=== PATIENT | male | born 1960 | race African-American/Black ===

== ENCOUNTER 2020-05-11 16:05 | Inpatient (IN) | payer OTHER ==
--- NOTE | 2020-05-11 20:18 | HP ---
CIWA Score - Admission Criteria [facility] Guidelines: Admission for Medically Managed Detox: Requires at least one of the followin. CIWA greater than 12 2. Seizures within the past 24 hours 3. Delirium tremens within the past 24 hours 4. Hallucinations within the past 24 hours 5. Acute intervention needed for co occurring medical disorder 6. Acute intervention needed for co occurring psychiatric disorder 7. Severe withdrawal that cannot be handled at a lower level of care (continued vomiting, continued diarrhea, abnormal vital signs) requiring intravenous medication and/or fluids 8. Admission ROS [facility] Chief Complaint: Seeking admission to Rehab. Allergies/Adverse Reactions: Allergies Allergy/AdvReac Type Severity Reaction Status Date / Time No Known Allergies Allergy Verified 05/11/20 20:29 History of Present Illness: Patient is seeking admission to Rehab. He reports that he drinks 1 pint Vodka occasionally but often once a week and his last drink was yesterday morning. He has medical history of asthma, seizures (last seizure was on 05/03/2020), hypertension, CVA ( thrice in 2013, 2016 and 2018) and psych. history of depression. He denies suicidal ideation at this time. He is unemployed, lives in a retirement and denies any legal issues. 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 Patient is a poor historian. Exam Limitations: No Limitations - Ebola screening Have you traveled outside of the country in the last 21 days: No Have you had contact with anyone from an Ebola affected area: No Have you been sick,other than usual withdrawal symptoms: No Do you have a fever: No - Review of Systems Constitutional: No Symptoms Reported EENT: reports: No Symptoms Reported Respiratory: reports: No Symptoms reported Cardiac: reports: No Symptoms Reported GI: reports: No Symptoms Reported : reports: No Symptoms Reported Musculoskeletal: reports: No Symptoms Reported Integumentary: reports: No Symptoms Reported Neuro: reports: No Symptoms reported Endocrine: reports: No Symptoms Reported Hematology: reports: No Symptoms Reported Psychiatric: reports: Mood/Affect Appropiate, Orientated x3 Other Systems: Reviewed and Negative Patient History - Patient Medical History Hx Anemia: No Hx Asthma: Yes Hx Chronic Obstructive Pulmonary Disease (COPD): No Hx Cancer: No Hx Cardiac Disorders: No Hx Congestive Heart Failure: No Hx Hypertension: Yes Hx Hypercholesterolemia: No Hx Pacemaker: No HX Cerebrovascular Accident: Yes (2015, 2016, 2018, ) Hx Seizures: Yes Hx Diabetes: No Hx Gastrointestinal Disorders: No Hx Liver Disease: No Hx Genitourinary Disorders: No Hx Sexually Transmitted Disorders: No Hx Renal Disease (ESRD): No Hx Thyroid Disease: No Hx Human Immunodeficiency Virus (HIV): No (Negative 2019) Hx Hepatitis C: No Hx Depression: Yes (+ Anxiety) Hx Suicide Attempt: No (Denies suicidal ideation at this time) Hx Bipolar Disorder: No Hx Schizophrenia: No - Patient Surgical History Past Surgical History: Yes Hx Neurologic Surgery: No Hx Cataract Extraction: No Hx Cardiac Surgery: No Hx Lung Surgery: No Hx Abdominal Surgery: No Hx Appendectomy: No Hx Cholecystectomy: No Hx Genitourinary Surgery: No Hx Orthopedic Surgery: No Other Surgical History: Arm surgery 1975 - PPD History Previous Implant?: Yes Documented Results: Negative w/o proof Implanted On Prior [facility] Admission?: No PPD to be Administered?: Yes - Reproductive History Patient is a Female of Child Bearing Age (11 -55 yrs old): No (Male) - Smoking Cessation Smoking history: Current some day smoker Have you smoked in the past 12 months: Yes Aproximately how many cigarettes per day: 1 Hx Chewing Tobacco Use: No Initiated information on smoking cessation: Yes 'Breaking Loose' booklet given: 05/11/20 - Substance & Tx. History Hx Alcohol Use: Yes Hx Substance Use: No Substance Use Type: Alcohol Hx Substance Use [place]: [place] - Substances abused Alcohol Substance route: Oral Frequency: 1-2 times per week Amount used: 1 pint Age of first use: 3 Date of last use: 05/10/20 Admission Physical Exam [facility] - Physical General Appearance: Yes: Within Normal Limits HEENTM: Yes: Within Normal Limits Respiratory: Yes: Within Normal Limits, Lungs Clear, Normal Breath Sounds, No Respiratory Distress Neck: Yes: Within Normal Limits Breast: Yes: Breast Exam Deferred Cardiology: Yes: Other (Elevated B/P (151/95)) Abdominal: Yes: Normal Bowel Sounds, Protuberent Genitourinary: Yes: Within Normal Limits Back: Yes: Normal Inspection Musculoskeletal: Yes: Within Normal Limits Extremities: Yes: Within Normal Limits Neurological: Yes: Within Normal Limits, Alert, Normal Mood/Affect Integumentary: Yes: Within Normal Limits Lymphatic: Yes: Within Normal Limits - Diagnostic (1) Alcohol dependence, uncomplicated Current Visit: Yes Status: Chronic (2) Hypertension Current Visit: Yes Status: Chronic Qualifiers: Hypertension type: essential hypertension Qualified Code(s): I10 - Essential (primary) hypertension (3) Seizures Current Visit: Yes Status: Chronic (4) Asthma Current Visit: Yes Status: Chronic Qualifiers: Asthma severity: unspecified severity Asthma persistence: unspecified Asthma complication type: unspecified Qualified Code(s): J45.909 - Unspecified asthma, uncomplicated (5) CVA (cerebral vascular accident) Current Visit: Yes Status: Chronic Qualifiers: CVA mechanism: unspecified Qualified Code(s): I63.9 - Cerebral infarction, unspecified (6) Depression Current Visit: Yes Status: Chronic Qualifiers: Depression Type: unspecified Qualified Code(s): F32.9 - Major depressive disorder, single episode, unspecified (7) Anxiety Current Visit: Yes Status: Chronic (8) Nicotine dependence Current Visit: Yes Status: Acute Qualifiers: Nicotine product type: cigarettes Substance use status: uncomplicated Qualified Code(s): F17.210 - Nicotine dependence, cigarettes, uncomplicated Cleared for Admission [facility] - Detox or Rehab [facility] Level of Care: Observation Bed Claeared for Rehab Admission: Yes Breathalyzer - Breathalyzer Breathalyzer: 0 Urine Drug Screen - Test Device Lot number: [id number] Expiration date: 11/18/21 - Control Is test valid?: Yes - Results Drug screen NEGATIVE: No Urine drug screen results: BZO-Benzodiazepines Inpatient Rehab Admission - Rehab Decision to Admit Inpatient rehab admission?: Yes - Initial Determination Are CD services needed?: No Free of communicable disease: Yes Not in need of hospitalization: Yes - Rehab Admission Criteria Previous failed treatment: Yes Poor recovery environment: Yes Comorbidities: Yes Lacks judgement: No Patient is meeting Inpatient Rehab admission criteria:: Yes
[2020-05-11] MEDS ORDERED: guaiFENesin 200 MG/10 ML 10 ML UNIT-DOSE CUPS PO PRN (20:50)
[2020-05-11] MEDS ORDERED: IBUPROFEN 400 MG TABLET (FP) PO PRN (20:50)
[2020-05-11] MEDS ORDERED: P-EPHED 60MG/TRIPROLIDI 2.5MG TABLET PO PRN (20:50)
[2020-05-11] MEDS ORDERED: LOPERAMIDE HCL 2 MG CAPSULE PO PRN (20:50)
[2020-05-11] MEDS ORDERED: MAG HYDROX/AL HYDROX/SIMETH 30 ML UNIT-DOSE CUP PO PRN (20:50)
[2020-05-11] MEDS ORDERED: ACETAMINOPHEN 325 MG TABLET (FP) PO PRN (20:50)
[2020-05-11] MEDS ORDERED: NICOTINE POLACRILEX 2 MG GUM BC PRN (20:50)
[2020-05-11] MEDS ORDERED: MAGNESIUM CITRATE 300 ML BOTTLE PO PRN (20:50)
[2020-05-11] MEDS ORDERED: MAGNESIUM HYDROX 2400MG/30ML ORAL SUSPENSION 30 ML CUP PO PRN (20:50)
--- OUTSIDE RECORDS SUMMARY | 2020-05-11 21:22 | XMS ---
:1960 Author Organization [facility] Support Name Relationship Address Phone UE Unavailable Unavailable Unavailable STEPHANIE MCNAMARA SELF / SAME PATIENT [id number] [place] [address] [place] [address] WHITE, BILL Unavailable [address] [phone] [place], [place] Re-disclosure Warning The records that you are about to access may contain information from federally- assisted alcohol or drug abuse programs. If such information is present, then the following federally mandated warning applies: This information has been disclosed to you from records protected by federal confidentiality rules (42 CFR part 2). The federal rules prohibit you from making any further disclosure of this information unless further disclosure is expressly permitted by the written consent of the person to whom it pertains or as otherwise permitted by 42 CFR part 2. A general authorization for the release of medical or other information is NOT sufficient for this purpose. The Federal rules restrict any use of the information to criminally investigate or prosecute any alcohol or drug abuse patient.The records that you are about to access may contain highly sensitive health information, the redisclosure of which is protected by Article 27-F of the [facility] Public Health law. If you continue you may haveaccess to information: Regarding HIV / AIDS; Provided by facilities licensed or operated by the [facility] Office of Mental Health; or Provided by the [facility] Office for People With Developmental Disabilities. If such information is present, then the following [facility] mandated warning applies: This information has been disclosed to you from confidential records which are protected by state law. State law prohibits you from making any further disclosure of this information without the specific written consent of the person to whom it pertains, or as otherwise permitted by law. Any unauthorized further disclosure in violation of state law may result in a fine or fci sentence or both. A general authorization for the release of medical or other information is NOT sufficient authorization for further disclosure. Allergies and Adverse Reactions Type Description Substance Reaction Status Data Source(s ) Drug allergy Tylenol Acetaminophen Unknown Active eCW3 ([facility]) Encounters Encounter Providers Location Date Indications Data Source(s ) Outpatient [facility] 05/26/2019 eCW3 ([facility] 12:00:00 [facility] - [facility]) 05/26/2019 12:00:[address] [facility] 04/01/2019 eCW3 ([facility] 12:00:00 [facility] - [facility]) 04/01/2019 12:00:00 AM EDT A28-Est Therapy, [facility] 02/25/2019 eCW3 ([facility] A28 12:00:00 AM [facility] EDT - Care) 02/25/2019 12:00:[address] [facility] 01/08/2019 eCW3 ([facility] 12:00:00 [facility]) 01/08/2019 12:00:[address] [facility] 01/03/2019 eCW3 ([facility] 12:00:00 AM [facility] - [facility]) 01/03/2019 12:00:[address] [facility] 10/30/2018 eCW3 ([facility] 12:00:00 AM [facility] - [facility]) 10/30/2018 12:00:00 AM EDT (SDA-PCI/AN) [facility] 10/29/2018 eCW3 ([facility] A28 12:00:00 AM [facility] Jfea-Oded-ao Visit EDT - Care) 10/29/2018 12:00:00 AM EDT Medications Medication Brand Start Product Dose Route Administrative Pharmacy [facility] Indications Reaction Description Data Name Date Form Instructions Instructions Source(s) Acetaminoph Tyleno 11/10/ active Tylenol 325 eCW3 en 325 MG l 325 2020 MG ([facility] Oral Tablet MG 12:00: [facility] [Tylenol] 00 AM Health Tylenol 325 EDT Care) MG Zithromax Zithro 11/10/ active Zithromax eCW3 Z-Sixto 250 max 2020 Z-Sixto 250 MG ([facility] MG Z-Sixto 12:00: [facility] 250 MG 00 AM Health EDT Care) Zithromax Zithro 11/10/ active Zithromax eCW3 Z-Sixto 250 max 2020 Z-Sixto 250 MG ([facility] MG Z-Sixto 12:00: [facility] 250 MG 00 AM Health EDT Care) Zithromax Zithro 11/10/ active Zithromax eCW3 Z-Sixto 250 max 2020 Z-Sixto 250 MG ([facility] MG Z-Sixto 12:00: [facility] 250 MG 00 AM Health EDT Care) Acetaminoph Tyleno 11/10/ active Tylenol 325 eCW3 en 325 MG l 325 2020 MG ([facility] Oral Tablet MG 12:00: [facility] [Tylenol] 00 AM Health Tylenol 325 EDT Care) MG Acetaminoph Tyleno 11/10/ active Tylenol 325 eCW3 en 325 MG l 325 2020 MG ([facility] Oral Tablet MG 12:00: [facility] [Tylenol] 00 AM Health Tylenol 325 EDT Care) MG Zithromax Zithro 11/10/ suspend Zithroma x eCW3 Z-Sixto 250 max 2020 ed Z-Sixto 250 MG ([facility] MG Z-Sixto 12:00: [facility] 250 MG 00 AM Health EDT Care) Zithromax Zithro 11/10/ active Zithromax eCW3 Z-Sixto 250 max 2020 Z-Sixto 250 MG ([facility] MG Z-Sixto 12:00: [facility] 250 MG 00 AM Health EDT Care) Hydroxyzine HydrOX .0 active HydrOXY zine eCW3 Hydrochlori Yzine 2018 {tabl HCl 25 MG ( [facility] de 25 MG HCl 25 12:00: et_as [facility] Tablet MG 00 AM _need Health HydrOXYzine EDT ed} Care) HCl 25 MG Hydroxyzine HydrOX .0 active HydrOXY zine eCW3 Hydrochlori Yzine 2018 {tabl HCl 25 MG ( [facility] de 25 MG HCl 25 12:00: et_as [facility] Oral Tablet MG 00 AM _need Health HydrOXYzine EDT ed} Care) HCl 25 MG montelukast Singul 1.0 active Singulair 10 eCW3 10 MG Oral air 10 {tabl mg ([facility] Tablet mg et} [facility] [Singulair] Health Singulair Care) 10 mg 120 ACTUAT Combiv 1.0 active Combivent eCW3 Albuterol ent {puff Respimat ([facility] 0.1 Respim } 20-100 [facility] MG/ACTUAT / at MCG/ACT Healt h Ipratropium 20-100 Care) [place] MCG/AC 0.02 T MG/ACTUAT Metered Dose Inhaler [Combivent] Combivent Respimat 20-100 MCG/ACT Albuterol Albute 2.0 active Albuterol e CW3 Sulfate HFA rol {puff Sulfate HFA ([facility] 108 (90 Sulfat s_as_ 108 (90 [facility]) e HFA neede Base) Health MCG/ACT 108 d} MCG/ACT Care) (90 Base) MCG/AC T Multivitami Multiv active Multivita min eCW3 n Adult - itamin Adult - ([facility] Care) 120 ACTUAT Combiv 1.0 active Combivent eCW3 Albuterol ent {puff Respimat ([facility] 0.1 Respim } 20-100 [facility] MG/ACTUAT / at MCG/ACT Healt h Ipratropium 20-100 Care) [place] MCG/AC 0.02 T MG/ACTUAT Metered Dose Inhaler [Combivent] Combivent Respimat 20-100 MCG/ACT Vitamin B Vitami active Vitamin B e CW3 Complex - n B Complex - ([facility] Comple [facility] x - Health Care) Hydroxyzine HydrOX 1.0 suspend HydrOXYz ine eCW3 Hydrochlori Yzine {tabl ed HCl 25 MG ( [facility] de 25 MG HCl 25 et} [facility] Oral Tablet MG Health HydrOXYzine Care) HCl 25 MG Albuterol Albute 2.0 active Albuterol e CW3 Sulfate HFA rol {puff Sulfate HFA ([facility] 108 (90 Sulfat s_as_ 108 (90 [facility]) e HFA neede Base) Health MCG/ACT 108 d} MCG/ACT Care) (90 Base) MCG/AC T Albuterol Albute 2.0 active Albuterol e CW3 Sulfate HFA rol {puff Sulfate HFA ([facility] 108 (90 Sulfat s_as_ 108 (90 [facility]) e HFA neede Base) Health MCG/ACT 108 d} MCG/ACT Care) (90 Base) MCG/AC T Hydroxyzine HydrOX 1.0 suspend HydrOXYz ine eCW3 Hydrochlori Yzine {tabl ed HCl 25 MG ( [facility] de 25 MG HCl 25 et} [facility] Oral Tablet MG Health HydrOXYzine Care) HCl 25 MG Albuterol Albute 2.0 active Albuterol e CW3 Sulfate HFA rol {puff Sulfate HFA ([facility] 108 (90 Sulfat s_as_ 108 (90 [facility]) e HFA neede Base) Health MCG/ACT 108 d} MCG/ACT Care) (90 Base) MCG/AC T Albuterol Albute 2.0 active Albuterol e CW3 Sulfate HFA rol {puff Sulfate HFA ([facility] 108 (90 Sulfat s_as_ 108 (90 [facility]) e HFA neede Base) Health MCG/ACT 108 d} MCG/ACT Care) (90 Base) MCG/AC T montelukast Singul 1.0 active Singulair 10 eCW3 10 MG Oral air 10 {tabl MG ([facility] Tablet MG et} [facility] [Singulair] Health Singulair Care) 10 MG 120 ACTUAT Combiv 1.0 active Combivent eCW3 Albuterol ent {puff Respimat ([facility] 0.1 Respim } 20-100 [facility] MG/ACTUAT / at MCG/ACT Healt h Ipratropium 20-100 Care) [place] MCG/AC 0.02 T MG/ACTUAT Metered Dose Inhaler [Combivent] Combivent Respimat 20-100 MCG/ACT Albuterol Albute 2.0 active Albuterol e CW3 Sulfate HFA rol {puff Sulfate HFA ([facility] 108 (90 Sulfat s_as_ 108 (90 [facility]) e HFA neede Base) Health MCG/ACT 108 d} MCG/ACT Care) (90 Base) MCG/AC T 120 ACTUAT Combiv 1.0 active Combivent eCW3 Albuterol ent {puff Respimat ([facility] 0.1 Respim } 20-100 [facility] MG/ACTUAT / at MCG/ACT Healt h Ipratropium 20-100 Care) [place] MCG/AC 0.02 T MG/ACTUAT Metered Dose Inhaler [Combivent] Combivent Respimat 20-100 MCG/ACT montelukast Singul 1.0 active Singulair 10 eCW3 10 MG Oral air 10 {tabl mg ([facility] Tablet mg et} [facility] [[facility]) 10 mg montelukast Singul 1.0 active Singulair 10 eCW3 10 MG Oral air 10 {tabl mg ([facility] [facility] Tablet mg et} [facility] [[facility]] [facility]) 10 mg 120 ACTUAT Combiv 1.0 active Combivent eCW3 Albuterol ent {puff Respimat ([facility] 0.1 Respim } 20-100 [facility] MG/ACTUAT / at MCG/ACT Healt h Ipratropium 20-100 Care) [place] MCG/AC 0.02 T MG/ACTUAT Metered Dose Inhaler [Combivent] Combivent Respimat 20-100 MCG/ACT montelukast Singul 1.0 active Singulair 10 eCW3 10 MG Oral air 10 {tabl mg ([facility] Tablet mg et} [facility] [[facility]] [facility]) 10 mg Hydroxyzine HydrOX 1.0 suspend HydrOXYz ine eCW3 Hydrochlori Yzine {tabl ed HCl 25 MG ( [facility] de 25 MG HCl 25 et} [facility] Oral Tablet MG [facility] HydrOXYzine [facility]) HCl 25 MG Multivitami Multiv active Multivita min eCW3 n Adult - itamin Adult - ([facility] - [facility] Care) Hydroxyzine HydrOX 1.0 suspend HydrOXYz ine eCW3 Hydrochlori Yzine {tabl ed HCl 25 MG ( [facility] de 25 MG HCl 25 et} [facility] Tablet MG [facility] HydrOXYzine Care) HCl 25 MG 120 ACTUAT Combiv 1.0 active Combivent eCW3 Albuterol ent {puff Respimat ([facility] 0.1 Respim } 20-100 [facility] MG/ACTUAT / at MCG/ACT Healt h Ipratropium 20-100 Care) [place] MCG/AC 0.02 T MG/ACTUAT Metered Dose Inhaler [Combivent] Combivent Respimat 20-100 MCG/ACT Hydroxyzine HydrOX 1.0 suspend HydrOXYz ine eCW3 Hydrochlori Yzine {tabl ed HCl 25 MG ( [facility] de 25 MG HCl 25 et} [facility] Tablet MG Health HydrOXYzine Care) HCl 25 MG 120 ACTUAT Combiv 1.0 active Combivent eCW3 Albuterol ent {puff Respimat ([facility] 0.1 Respim } 20-100 [facility] MG/ACTUAT / at MCG/ACT Healt h Ipratropium 20-100 Care) [place] MCG/AC 0.02 T MG/ACTUAT Metered Dose Inhaler [Combivent] Combivent Respimat 20-100 MCG/ACT montelukast Singul 1.0 active Singulair 10 eCW3 10 MG Oral air 10 {tabl mg ([facility] Tablet mg et} [facility] [Singulair] Health Singulair Care) 10 mg montelukast Singul 1.0 active Singulair 10 eCW3 10 MG Oral air 10 {tabl MG ([facility] Tablet MG et} [facility] [Singulair] Health Singulair Care) 10 MG Albuterol Albute 2.0 active Albuterol e CW3 Sulfate HFA rol {puff Sulfate HFA ([facility] 108 (90 Sulfat s_as_ 108 (90 [facility]) e HFA neede Base) Health MCG/ACT 108 d} MCG/ACT Care) (90 Base) MCG/AC T Vitamin B Vitami active Vitamin B e CW3 Complex - n B Complex - ([facility] x - Health Care) Insurance Providers Payer name Policy type Policy ID Covered Covered republican's Policy P joe / Coverage republican ID relationship to Meng Inf ormation type meng [facility] [id number] HEALTH NON CAP Problems, Conditions, and Diagnoses Code Display Name Description Problem Type Effective Data Sour ce(s) Dates F10.20 Uncomplicated Uncomplicated Problem 01/30/2020 eCW3 ([facility] alcohol dependence alcohol dependence 12:00:00 AM [facility] Care) G89.29 Other chronic pain Other chronic pain Problem 0 eCW3 ([facility] 12:00:00 AM [facility]) G89.29 Other chronic pain Other chronic pain Problem 0 eCW3 ([facility] 12:00:[address] [facility] EDT Care) F41.1 ANDERS (generalized ANDERS (generalized Problem 02/25/2019 eC W3 ([facility] anxiety disorder) anxiety disorder) 12:00:[address] [facility] EDT Care) F81.9 Intellectual delay Intellectual delay Problem 9 eCW3 ([facility] 12:00:[address] [facility] EDT Care) F41.1 ANDERS (generalized ANDERS (generalized Problem 02/25/2019 eC W3 ([facility] anxiety disorder) anxiety disorder) 12:00:[address] [facility] EDT Care) F41.1 ANDERS (generalized ANDERS (generalized Problem 02/25/2019 eC W3 ([facility] anxiety disorder) anxiety disorder) 12:00:[address] [facility] EDT Care) F81.9 Intellectual delay Intellectual delay Problem 9 eCW3 ([facility] 12:00:[address] [facility] EDT Care) F99 Psychiatric Psychiatric Problem 01/08/2019 eCW3 ([facility] diagnosis diagnosis 12:00:[address] [facility] EDT Care) F99 Psychiatric Psychiatric Problem 01/08/2019 eCW3 ([facility] diagnosis diagnosis 12:00:[address] [facility] EDT Care) J45.20 Mild intermittent Mild intermittent Problem 10/30/2018 eCW3 ([facility] asthma without asthma without 12:00:[address] [facility] complication complication EDT Care) F17.200 Smoker Smoker Problem 10/30/2018 eCW3 ([facility] 12:00:[address] [facility] EDT Care) Social History Code Duration Value Status Description Data Source(s ) Smoking 04/02/2020 Current Smoker completed Current Smoker eCW3 ( [facility] 12:00:00 AM EDT Health Ca re) Smoking 01/30/2020 Current Smoker completed Current Smoker eCW3 ( [facility] 12:00:00 AM EDT Health Ca re) Smoking 11/11/2019 Current Smoker completed Current Smoker eCW3 ( [facility] 12:00:00 AM EDT Health Ca re) Smoking 11/11/2019 Current Smoker completed Current Smoker eCW3 ( [facility] 12:00:00 AM EDT Health Ca re) Smoking 11/11/2019 Current Smoker completed Current Smoker eCW3 ( [facility] 12:00:00 AM EDT Health Ca re) Smoking 02/27/2019 Current Smoker completed Current Smoker eCW3 ( [facility] 12:00:00 AM EDT Health Ca re) Smoking 02/27/2019 Current Smoker completed Current Smoker eCW3 ( [facility] 12:00:00 AM EDT Health Ca re) Current Smoker completed Current Smoker eCW3 ( [facility]) Current Smoker completed Current Smoker eCW3 ( [facility]) Current Smoker completed Current Smoker eCW3 ( [facility]) Current Smoker completed Current Smoker eCW3 ( [facility]) Current Smoker completed Current Smoker eCW3 ( [facility]) Current Smoker completed Current Smoker eCW3 ( [facility]) Current Smoker completed Current Smoker eCW3 ( [facility]) Vital Signs ID Date Data Source UNK Name Value Range Interpretation Code Description Data Source(s) Diastolic blood 88 mm[Hg] 88 mm[Hg] eCW3 ([facility]) Systolic blood 142 mm[Hg] 142 mm[Hg] eCW3 ([facility]) Body temperature 98.1 [degF] 98.1 [degF] eCW3 ( [facility]) Heart rate 18 /min 18 /min eCW3 ([facility]) Body mass index 29.60 kg/m2 29.60 kg/m2 eCW3 ([facility] (BMI) [Ratio] [facility]) Body weight 189 [lb_av] 189 [lb_av] eCW3 ([facility]) Body height [in_i] eCW3 ([facility]) Diastolic blood 85 mm[Hg] 85 mm[Hg] eCW3 ([facility]) Systolic blood 134 mm[Hg] 134 mm[Hg] eCW3 ([facility]) Body temperature 97.8 [degF] 97.8 [degF] eCW3 ( [facility]) Body mass index 28.16 kg/m2 28.16 kg/m2 eCW3 ([facility] (BMI) [Ratio] [facility]) Body weight 179.8 179.8 [lb_av] eCW3 ([facility] on [lb_av] [facility]) Body height 67 [in_i] 67 [in_i] eCW3 ([facility]) Diastolic blood 89 mm[Hg] 89 mm[Hg] eCW3 ([facility]) Systolic blood 136 mm[Hg] 136 mm[Hg] eCW3 ([facility]) Body temperature 98.8 [degF] 98.8 [degF] eCW3 ( [facility]) Body mass index 29.03 kg/m2 29.03 kg/m2 eCW3 ([facility][note 2]alessandro (BMI) [Ratio] [facility]) Body weight 185.4 185.4 [lb_av] eCW3 ([facility] on [lb_av] [facility]) Body height 67 [in_i] 67 [in_i] eCW3 ([facility]) Diastolic blood 71 mm[Hg] 71 mm[Hg] eCW3 ([facility]) Systolic blood 111 mm[Hg] 111 mm[Hg] eCW3 ([facility]) Body temperature 98.6 [degF] 98.6 [degF] eCW3 ( [facility]) Heart rate 18 /min 18 /min eCW3 ([facility]) Body weight 175 [lb_av] 175 [lb_av] eCW3 ([facility]) Patient Treatment Plan of Care Planned Activity Planned Date Details Description Data Source (s) Acetaminophen 325 MG Oral 11/11/2019 12:00:00 eCW3 ([facility] Tablet [facility]ol[facility] ) Zithromax Z-Sixto 250 MG 11/11/2019 12:00:00 eCW3 ([facility]) Zithromax Z-Sixto 250 MG 11/11/2019 12:00:00 eCW3 ([facility]) Acetaminophen 325 MG Oral 11/11/2019 12:00:00 eCW3 ([facility] Tablet [Tylenol] [facility] ) Zithromax Z-Sixto 250 MG 11/11/2019 12:00:00 eCW3 ([facility] hospital) Acetaminophen 325 MG Oral 11/11/2019 12:00:00 eCW3 ([facility] Tablet [facility]Tylenol] [facility] ) Vitamin B Complex - eCW3 ([facility]) Multivitamin Adult - eCW3 ([facility]) montelukast 10 MG Oral eCW3 ([facility] [Singula] [facility]) 120 ACTUAT Albuterol 0.1 eCW 3 ([facility] MG/ACTUAT / Ipratropium [facility]) [place] 0.02 MG/ACTUAT Metered Dose Inhaler [Combivent] Albuterol Sulfate HFA 108 eC W3 ([facility] (90 Base) MCG/[employer] Car e)
[2020-05-11 23:51] VITALS: BMI 29.6
[2020-05-12] MEDS ORDERED: TUBERCULIN PPD 5 TU/0.1ML VIAL ID ONE (00:46)
[2020-05-12] MEDS: MELATONIN 5 MG TABLETS PO SCH ×2 (01:07→21:04)
[2020-05-12] MEDS: THIAMINE HCL 100 MG TABLET (FP) PO SCH ×2 (01:07→21:04)
[2020-05-12] MEDS: PRENATAL VITAMINS W/ FOLIC ACID TABLET (FP) PO SCH (09:37)
[2020-05-12 10:31] LABS: HEMATOCRIT 42.2 % (35.4-49); HEMOGLOBIN 14.4 GM/dL (11.7-16.9); MCH 31.4 pg (25.7-33.7); MCHC 34.1 g/dl (32.0-35.9); MEAN CELL VOLUME 92.1 fl (80-96); MEAN PLT VOLUME 8.8 fl (7.5-11.1); PLATELET COUNT 235 K/MM3 (134-434); RBC 4.58 M/mm3 (4.00-5.60); RDW 13.4 % (11.9-15.9); WHITE BLOOD COUNT 4.3 K/mm3 (4.0-10.0)
[2020-05-12 10:33] LABS: PH,URINE 5.5 (5.0-8.0); URINE APPEARANCE CLEAR; URINE BILIRUBIN NEGATIVE (NEGATIVE); URINE COLOR YELLOW; URINE GLUCOSE (UA) NEGATIVE (NEGATIVE); URINE KETONE TRACE (NEGATIVE); URINE LEUK ESTERASE NEGATIVE (NEGATIVE); URINE NITRITE NEGATIVE (NEGATIVE); URINE PROTEIN NEGATIVE (NEGATIVE); URINE UROBILINOGEN 0.2 mg/dL (0.2-1.0)
[2020-05-12 10:45] LABS: ALBUMIN 3.8 g/dl (3.4-5.0); BILIRUBIN,TOTAL 0.6 mg/dL (0.2-1); BLOOD UREA NITROGEN 18.7 mg/dL (7-18); CALCIUM 8.7 mg/dL (8.5-10.1); CREATININE 0.9 mg/dL (0.55-1.3); POTASSIUM 3.7 mmol/L (3.5-5.1); TOT PROT 7.2 g/dl (6.4-8.2)
[2020-05-12] MEDS ORDERED: ALBUTEROL SULFATE IH PRN (10:45)
[2020-05-12] MEDS ORDERED: ALBUTEROL SO4 HFA INHALER IH PRN (10:47)
--- NOTE | 2020-05-12 10:51 | PN ---
S Progress Note Note: Medications reviewed and confirmed, added to patient's orders. Vital Signs Period Temp Pulse Resp BP Sys/[place] Pulse Ox Last 24 Hr 97.2 F-98.1 F 69-73 18-18 139-151/81-96 97-98
--- NOTE | 2020-05-12 10:59 | EKG ---
Test Reason : Blood Pressure : / mmHG Vent. Rate : 060 BPM Atrial Rate : 060 BPM P-R Int : 176 ms QRS Dur : 086 ms QT Int : 448 ms P-R-T Axes : 018 028 033 degrees QTc Int : 448 ms NORMAL SINUS RHYTHM NORMAL ECG NO PREVIOUS ECGS AVAILABLE Confirmed by MD Mian, Anoop ([id number]) on 05/12/2020 10:58:19 AM Referred By: Confirmed By:Anoop Pappas MD
[2020-05-12 11:03] LABS: SICKLE CELL SCREEN NEGATIVE (NEGATIVE)
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
[2020-05-12] MEDS ORDERED: PT OWN MED DRAWER 7, Y5N ONE (11:43)
[2020-05-12] MEDS: COMBIVENT RESPIMAT IH SCH ×3 (15:02→21:04)
[2020-05-12] MEDS: [UNRECOGNIZED DRUG - OTHER] PO SCH (21:04)
[2020-05-12] MEDS ORDERED: MONTELUKAST NA 10 MG TABLET PO SCH (22:00)
[2020-05-13] MEDS ORDERED: SINGULAIR 10 MG PO SCH (10:00)
[2020-05-13] MEDS: PRENATAL VITAMINS W/ FOLIC ACID TABLET (FP) PO SCH (10:21)
[2020-05-13] MEDS: COMBIVENT RESPIMAT IH SCH ×4 (10:21→21:04)
[2020-05-13] MEDS: [UNRECOGNIZED DRUG - OTHER] PO SCH (21:03)
[2020-05-13] MEDS: THIAMINE HCL 100 MG TABLET (FP) PO SCH (21:03)
[2020-05-13] MEDS: MELATONIN 5 MG TABLETS PO SCH (21:03)
[2020-05-14] MEDS: PRENATAL VITAMINS W/ FOLIC ACID TABLET (FP) PO SCH (09:47)
[2020-05-14] MEDS: COMBIVENT RESPIMAT IH SCH ×4 (09:48→21:02)
[2020-05-14] MEDS: THIAMINE HCL 100 MG TABLET (FP) PO SCH (21:02)
[2020-05-14] MEDS: [UNRECOGNIZED DRUG - OTHER] PO SCH (21:02)
[2020-05-14] MEDS: MELATONIN 5 MG TABLETS PO SCH (21:02)
[2020-05-15] MEDS: COMBIVENT RESPIMAT IH SCH ×4 (09:32→21:33)
[2020-05-15] MEDS: PRENATAL VITAMINS W/ FOLIC ACID TABLET (FP) PO SCH (09:33)
[2020-05-15] MEDS: MELATONIN 5 MG TABLETS PO SCH (21:32)
[2020-05-15] MEDS: [UNRECOGNIZED DRUG - OTHER] PO SCH (21:32)
[2020-05-15] MEDS: THIAMINE HCL 100 MG TABLET (FP) PO SCH (21:32)
[2020-05-16] MEDS: PRENATAL VITAMINS W/ FOLIC ACID TABLET (FP) PO SCH (09:34)
[2020-05-16] MEDS: COMBIVENT RESPIMAT IH SCH ×4 (09:34→21:06)
[2020-05-16] MEDS: [UNRECOGNIZED DRUG - OTHER] PO SCH (21:06)
[2020-05-16] MEDS: MELATONIN 5 MG TABLETS PO SCH (21:06)
[2020-05-16] MEDS: THIAMINE HCL 100 MG TABLET (FP) PO SCH (21:06)
[2020-05-17] MEDS: PRENATAL VITAMINS W/ FOLIC ACID TABLET (FP) PO SCH (09:34)
[2020-05-17] MEDS: COMBIVENT RESPIMAT IH SCH ×4 (09:35→21:53)
[2020-05-17] MEDS: THIAMINE HCL 100 MG TABLET (FP) PO SCH (21:53)
[2020-05-17] MEDS: [UNRECOGNIZED DRUG - OTHER] PO SCH (21:53)
[2020-05-17] MEDS: MELATONIN 5 MG TABLETS PO SCH (21:53)
[2020-05-18] MEDS: PRENATAL VITAMINS W/ FOLIC ACID TABLET (FP) PO SCH (10:41)
[2020-05-18] MEDS: COMBIVENT RESPIMAT IH SCH ×4 (10:41→21:35)
[2020-05-18] MEDS: MELATONIN 5 MG TABLETS PO SCH (21:35)
[2020-05-18] MEDS: [UNRECOGNIZED DRUG - OTHER] PO SCH (21:36)
[2020-05-18] MEDS: THIAMINE HCL 100 MG TABLET (FP) PO SCH (21:38)
[2020-05-19] MEDS: COMBIVENT RESPIMAT IH SCH ×4 (10:58→21:01)
[2020-05-19] MEDS: PRENATAL VITAMINS W/ FOLIC ACID TABLET (FP) PO SCH (10:58)
[2020-05-19] MEDS: MELATONIN 5 MG TABLETS PO SCH (21:02)
[2020-05-19] MEDS: [UNRECOGNIZED DRUG - OTHER] PO SCH (21:02)
[2020-05-19] MEDS: THIAMINE HCL 100 MG TABLET (FP) PO SCH (21:03)
[2020-05-20] MEDS: PRENATAL VITAMINS W/ FOLIC ACID TABLET (FP) PO SCH (09:50)
[2020-05-20] MEDS: COMBIVENT RESPIMAT IH SCH ×4 (09:50→21:48)
[2020-05-20] MEDS ORDERED: PT OWN MED DRAWER 7, Y5N ONE (19:29)
[2020-05-20] MEDS: [UNRECOGNIZED DRUG - OTHER] PO SCH (21:47)
[2020-05-20] MEDS: MELATONIN 5 MG TABLETS PO SCH (21:47)
[2020-05-20] MEDS: THIAMINE HCL 100 MG TABLET (FP) PO SCH (21:47)
[2020-05-21] MEDS: PRENATAL VITAMINS W/ FOLIC ACID TABLET (FP) PO SCH (10:20)
[2020-05-21] MEDS: COMBIVENT RESPIMAT IH SCH ×4 (10:20→21:02)
[2020-05-21] MEDS: MELATONIN 5 MG TABLETS PO SCH (21:01)
[2020-05-21] MEDS: [UNRECOGNIZED DRUG - OTHER] PO SCH (21:01)
[2020-05-21] MEDS: THIAMINE HCL 100 MG TABLET (FP) PO SCH (21:02)
[2020-05-22] MEDS: PRENATAL VITAMINS W/ FOLIC ACID TABLET (FP) PO SCH (09:55)
[2020-05-22] MEDS: COMBIVENT RESPIMAT IH SCH ×4 (09:55→21:41)
[2020-05-22] MEDS: [UNRECOGNIZED DRUG - OTHER] PO SCH (21:40)
[2020-05-22] MEDS: MELATONIN 5 MG TABLETS PO SCH (21:41)
[2020-05-22] MEDS: THIAMINE HCL 100 MG TABLET (FP) PO SCH (21:41)
[2020-05-23] MEDS: COMBIVENT RESPIMAT IH SCH ×4 (09:54→21:05)
[2020-05-23] MEDS: PRENATAL VITAMINS W/ FOLIC ACID TABLET (FP) PO SCH (09:54)
[2020-05-23] MEDS: THIAMINE HCL 100 MG TABLET (FP) PO SCH (21:05)
[2020-05-23] MEDS: MELATONIN 5 MG TABLETS PO SCH (21:05)
[2020-05-23] MEDS: [UNRECOGNIZED DRUG - OTHER] PO SCH (21:05)
[2020-05-24] MEDS: PRENATAL VITAMINS W/ FOLIC ACID TABLET (FP) PO SCH (09:44)
[2020-05-24] MEDS: COMBIVENT RESPIMAT IH SCH ×4 (09:45→21:41)
[2020-05-24] MEDS: [UNRECOGNIZED DRUG - OTHER] PO SCH (21:40)
[2020-05-24] MEDS: MELATONIN 5 MG TABLETS PO SCH (21:40)
[2020-05-24] MEDS: THIAMINE HCL 100 MG TABLET (FP) PO SCH (21:40)
[2020-05-25 06:56] VITALS: BP 135/87; PULSE 72; TEMP 97
--- NOTE | 2020-05-25 08:41 | DS ---
[facility] Rehab Discharge Summary - [facility] Rehab Discharge Summary Admission Date: 05/11/20 Discharge Date: 05/25/20 - History Present History: Alcohol dependence Pertinent Past History: Asthma HTN CVA - Discharge Physical Exam Vital Signs: Vital Signs Temperature 97 F L 05/25/20 05:59 Pulse Rate 72 05/25/20 05:59 Respiratory Rate 18 05/25/20 05:59 Blood Pressure 135/87 05/25/20 05:59 O2 Sat by Pulse Oximetry (%) 98 05/25/20 05:59 General:WDWN male, Alert o x 3, nad Cardiac:s1 s2,rrr lungs:ctab abdomen:soft,+bs,nt,nd MSK/Skin:Active FROM, all limbs; oob ambulating with steady gait; no edema, skin intact. Pertinent Admission Physical Exam Findings: Laboratory Tests 05/11/20 05/11/20 05/11/20 07:00 07:00 07:00 WBC 4.3 RBC 4.58 Hgb 14.4 Hct 42.2 MCV 92.1 MCH 31.4 MCHC 34.1 RDW 13.4 Plt Count 235 MPV 8.8 Sickle Cell Screen Negative Sodium 139 Potassium 3.7 Chloride 105 Carbon Dioxide 27 Anion Gap 8 BUN 18.7 H Creatinine 0.9 Est GFR (CKD-EPI)AfAm 108.73 Est GFR (CKD-EPI)NonAf 93.82 Random Glucose 116 H Calcium 8.7 Total Bilirubin 0.6 AST 30 ALT 30 Alkaline Phosphatase 74 Total Protein 7.2 Albumin 3.8 Urine Color Urine Appearance Urine pH Ur Specific Proctor Urine Protein Urine Glucose (UA) Urine Ketones Urine Blood Urine Nitrite Urine Bilirubin Urine Urobilinogen Ur Leukocyte Esterase Syphilis Serology Non-reactive SARS-CoV-2 (PCR) 05/11/20 05/12/20 08:35 07:00 WBC RBC Hgb Hct MCV MCH MCHC RDW Plt Count MPV Sickle Cell Screen Sodium Potassium Chloride Carbon Dioxide Anion Gap BUN Creatinine Est GFR (CKD-EPI)AfAm Est GFR (CKD-EPI)NonAf Random Glucose Calcium Total Bilirubin AST ALT Alkaline Phosphatase Total Protein Albumin Urine Color Yellow Urine Appearance Clear Urine pH 5.5 Ur Specific Proctor 1.031 Urine Protein Negative Urine Glucose (UA) Negative Urine Ketones Trace H Urine Blood Negative Urine Nitrite Negative Urine Bilirubin Negative Urine Urobilinogen 0.2 Ur Leukocyte Esterase Negative Syphilis Serology SARS-CoV-2 (PCR) Negative - Treatment Discharge Condition: Discharge condition good, Rehabilitated safely, Responded well, Outpatient referral accepted Hospital Course: Pt is a 59 y/o male admitted to rehab and discharging today. Pt has been referred to [facility] to [place], [place] to follow up care. Pt also reports he has PCP, Dr. Champ Lowe with [place], [place]. - Medication Discharge Medications: Ambulatory Orders Albuterol Sulfate Hfa 2 puff PRN PRN 05/12/20 Combivent Respimat 20-100 Mcg 1 puff QID 05/12/20 Multivitamin 1 tab DAILY 05/12/20 Singulair 10 mg DAILY 05/12/20 Tylenol .Regular Strength - 325 mg PRN PRN 05/12/20 Vitamin B Complex 1 tab DAILY 05/12/20 Albuterol Sulfate Inhaler - [Ventolin HFA Inhaler -] 2 puff IH Q4H PRN #1 inhaler 05/24/20 Combivent Respimat 20-100 Mcg 1 puff IH QID #1 inhaler 05/24/20 Montelukast Sodium [Singulair] 10 mg PO HS #14 tablet 05/24/20 - Medication-Assisted Treatment (MAT) Medication-Assisted Treatment (MAT): No - Discharge Instructions Diet, activity, other medical instructions: Diet:Regular Activity: oob ad promise Other medical instructions:follow up with PCP as needed for medical management. - Diagnosis (1) Alcohol dependence Status: Chronic Qualifiers: Substance use status: uncomplicated Qualified Code(s): F10.20 - Alcohol dependence, uncomplicated (2) Asthma Status: Chronic Qualifiers: Asthma severity: unspecified severity Asthma persistence: unspecified Asthma complication type: unspecified Qualified Code(s): J45.909 - Unspecified asthma, uncomplicated (3) CVA (cerebral vascular accident) Status: Chronic Qualifiers: CVA mechanism: unspecified Qualified Code(s): I63.9 - Cerebral infarction, unspecified (4) Hypertension Status: Chronic Qualifiers: Hypertension type: essential hypertension Qualified Code(s): I10 - Essential (primary) hypertension (5) Nicotine dependence Status: Chronic Qualifiers: Nicotine product type: cigarettes Substance use status: uncomplicated Qualified Code(s): F17.210 - Nicotine dependence, cigarettes, uncomplicated (6) Seizure disorder Status: Chronic - Follow-up Referral Minutes to complete discharge: 20 - AMA Did Patient Leave Against Medical Advice: No
[2020-05-25] MEDS ORDERED: PT OWN MED DRAWER 7, Y5N ONE ×2 (08:42→09:11)
[2020-05-25] MEDS: COMBIVENT RESPIMAT IH SCH (09:10)
[2020-05-25] MEDS: PRENATAL VITAMINS W/ FOLIC ACID TABLET (FP) PO SCH (09:10)
== END 2020-05-25 09:15 | disposition home or self-care (01) | DRG 772 ==
LOC: YASAS 16:05 → Y3W 21:17
PROVIDERS: ADMIT Allergy & Immunology; ATTEND Allergy & Immunology
PROC: HZ42ZZZ Group Counseling for Substance Abuse Treatment, Cognitive-Behavioral (ICD-10-PCS; principal; 2020-05-11)
DX: F10.20 Alcohol dependence, uncomplicated (principal); F17.210 Nicotine dependence, cigarettes, uncomplicated; F32.9 Major depressive disorder, single episode, unspecified; F41.9 Anxiety disorder, unspecified; G40.909 Epilepsy, unspecified, not intractable, without status epilepticus; I10 Essential (primary) hypertension; J45.909 Unspecified asthma, uncomplicated; Z86.73 Personal history of transient ischemic attack (TIA), and cerebral infarction without residual deficits; Z98.890 Other specified postprocedural states; Z56.0 Unemployment, unspecified; Z59.0 Homelessness
CPT/HCPCS: 36415; 80053; 81003; 85027; 85660; 86780; 93005; 93010; U0003